=== PATIENT | male | born 1995 | race Caucasian/White ===

== ENCOUNTER 2017-03-23 10:43 | Emergency (ER) | payer OTHER ==
[~2017-03-23] VITALS: Ht 182.9 cm; Wt 72.6 kg
[2017-03-23 10:43] VITALS: BP 154/74
[2017-03-23] MEDS ORDERED: LIDOCAINE 2% MDV 20 ML VIAL SC ONE (11:15)
[2017-03-23] MEDS ORDERED: NEOSPORIN OINT 0.9 GM PKT (FLOOR STOCK) As Ordered ONE (12:00)
== END 2017-03-23 12:12 | disposition home or self-care (01) ==
LOC: M ED 11:26
DX: S66.323A Laceration of extensor muscle, fascia and tendon of left middle finger at wrist and hand level, initial encounter (principal); W26.0XXA Contact with knife, initial encounter; Y92.099 Unspecified place in other non-institutional residence as the place of occurrence of the external cause; Y93.89 Activity, other specified; Y99.9 Unspecified external cause status

== ENCOUNTER 2017-04-07 23:44 | Emergency (ER) | payer OTHER ==
[~2017-04-07] VITALS: Ht 175.3 cm; Wt 72.6 kg
[2017-04-07 23:45] VITALS: BP 155/72
[2017-04-08] MEDS ORDERED: IBUP-1114 PO (00:12)
== END 2017-04-08 01:48 | disposition left against medical advice (07) ==
LOC: M ED 04-08 01:05
DX: R10.9 Unspecified abdominal pain (principal); Z53.21 Procedure and treatment not carried out due to patient leaving prior to being seen by health care provider

== ENCOUNTER 2017-04-08 22:24 | Emergency (ER) | payer OTHER ==
[~2017-04-08] VITALS: Ht 175.3 cm; Wt 72.6 kg
[~2017-04-08 22:24] MED LIST: IBUP-1114 PO
[2017-04-09] MEDS ORDERED: NS 1,000 ML IV SCH (03:07)
[2017-04-09 03:29] LABS: BASO % 0.2 % (0.0-1.0); EOS # 0.8 K/mm3 (0.0-0.50); EOS % 10.7 % (0.0-3.0); LARGE UNSTAINED CELL # 0.2 K/mm3 (0.0-0.4); LARGE UNSTAINED CELL % 2.8 % (0.0-4.0); MEAN CORPUSCULAR HEMOGLOBIN 29.7 pg (27.0-33.0); MEAN CORPUSCULAR HGB CONC 33.8 g/dl (32.0-36.5); MEAN CORPUSCULAR VOLUME 87.9 fl (80.0-96.0); MONO # 0.5 K/mm3 (0.0-0.8); NEUTROPHILS # 3.3 K/mm3 (1.8-7.7); NEUTROPHILS % 43.2 % (36.0-66.0); PLATELET COUNT, AUTOMATED 241 k/mm3 (150-450); RED CELL DISTRIBUTION WIDTH 12.9 % (11.5-14.5); WHITE BLOOD COUNT 7.7 K/mm3 (4.0-10.0)
[2017-04-09 03:51] LABS: ALBUMIN 3.9 GM/DL (3.2-5.2); ALBUMIN/GLOBULIN RATIO 1.08 (1.00-1.93); ALKALINE PHOSPHATASE 84 U/L (45-117); ALT/SGPT 39 U/L (12-78); ANION GAP 7 MEQ/L (8-16); AST/SGOT 16 U/L (15-37); BILIRUBIN,DIRECT 0.1 MG/DL (0.0-0.2); BILIRUBIN,TOTAL 0.5 MG/DL (0.2-1.0); BLOOD UREA NITROGEN 15 MG/DL (7-18); CALCIUM LEVEL 9.1 MG/DL (8.5-10.1); CARBON DIOXIDE LEVEL 33 MEQ/L (21-32); CHLORIDE LEVEL 102 MEQ/L (98-107); CREATININE FOR GFR 1.33 MG/DL (0.70-1.30); GLOMERULAR FILTRATION RATE > 60.0 (>60); GLUCOSE, FASTING 92 MG/DL (70-105); POTASSIUM SERUM 3.7 MEQ/L (3.5-5.1); SODIUM LEVEL 142 MEQ/L (136-145); TOTAL PROTEIN 7.5 GM/DL (6.4-8.2)
[2017-04-09] MEDS ORDERED: IBUPROFEN 600 MG TAB PO ONE (05:45)
[2017-04-09 06:27] VITALS: BP 142/72
--- NOTE | 2017-04-09 06:40 | REPUSA ---
CLINICAL HISTORY: Abdominal pain. TECHNIQUE: Multiple axial, sagittal and coronal CT images were obtained through the abdomen and pelvi s without administration of oral or IV contrast material. COMMENTS: The liver is of uniform attenuation without mass or defect. There is no intra or extrahepatic biliary ductal dilatation. The spleen is normal. The gallbladder is within normal limits. The pancreas is of normal contour and attenuation characteristics. There is no evidence of adrenal mass. The kidneys are normal in size, shape and configuration. No renal or ureteral calculi are identified. There is no hydroureter or hydronephrosis. There is no evidence for appendicitis. There is mild proximal small bowel wall thickening. No evidenc e for small or large bowel obstruction. There is no evidence of abdominal ascites or lymphadenopathy. There is no evidence of intrinsic or extrinsic bladder mass. There is no pelvic ascites or lymphadeno anika. Images of the lung bases show no evidence of pleural or parenchymal mass. There are no pleural effusi ons. The bony structures are free of lytic or blastic lesions. IMPRESSION: Mild proximal small bowel loop thickening suspicious for mild antritis. Thank you for your kind referral of this patient.
== END 2017-04-09 06:54 | disposition home or self-care (01) ==
LOC: M ED 04-09 00:42
DX: R10.9 Unspecified abdominal pain (principal)